=== PATIENT | male | born 1965 | race Caucasian/White ===

== ENCOUNTER 2018-06-05 00:48 | Emergency (ER) | payer MEDICAID ==
[~2018-06-05] VITALS: Ht 175.3 cm; Wt 79.4 kg
--- NOTE | 2018-06-05 00:48 | NUR ---
PT BIBA BLS. TAKEN TO BED 9
--- NOTE | 2018-06-05 00:50 | NUR ---
ASSUMED CARE OF PT AT THIS TIME. PT BIBA AFTER BEING PT FOUND DOWN IN THE STREET. C/O LEFT SIDED CP X 1 HOUR. NO SOB. PT ADMITS TO ETOH TODAY. PATIENT STATES PAIN OF 0/10 AT THIS TIME; VSS; PATIENT POSITIONED FOR COMFORT; HOB ELEVATED; BEDRAILS UP X2; BED DOWN. ER MD MADE AWARE OF PT STATUS.
[2018-06-05 00:57] VITALS: BP 134/78
[2018-06-05] MEDS ORDERED: METF500T PO (01:00)
--- NOTE | 2018-06-05 01:02 | NUR ---
Dr. Polo evaluating patient at bedside.
[2018-06-05 01:24] LABS: BASOPHILS # (AUTO) 0.1 K/uL (0.00-0.22); BASOPHILS % (AUTO) 1.1 % (0.0-2.0); EOSINOPHILS # (AUTO) 0.1 K/uL (0-0.4); HEMATOCRIT 46.1 % (36-52); HEMOGLOBIN 15.4 g/dL (12.0-18.0); LYMPHOCYTES # (AUTO) 2.6 K/uL (2.0-11.5); MEAN CORPUSCULAR HEMOGLOBIN 32 pg (27-31); MEAN CORPUSCULAR HGB CONC 33 g/dL (33-37); MEAN CORPUSCULAR VOLUME 95.1 fL (80-94); MONOCYTES # (AUTO) 0.5 K/uL (0.8-1.0); NEUTROPHILS # (AUTO) 3.9 K/uL (1.8-7.7); NEUTROPHILS % (AUTO) 53.9 % (42.2-75.2); PLATELET COUNT (AUTO) 141 K/uL (140-450); RED BLOOD CELL COUNT(AUTO) 4.85 MIL/uL (4.20-6.10); RED CELL DISTRIBUTION WIDTH 14.8 % (11.6-13.7); WHITE BLOOD COUNT (AUTO) 7.2 K/uL (4.8-10.8)
[2018-06-05] MEDS: NACL 0.9% 1,000 ML IV ONE (01:24)
[2018-06-05] MEDS: ASPIRIN 325 MG TAB PO ONE (01:24)
--- NOTE | 2018-06-05 01:30 | NUR ---
X-Ray at bedside.
[2018-06-05 01:43] LABS: ANION GAP 8.1 (8-16); CARBON DIOXIDE 30.6 mmol/L (21-32); CREATININE 0.9 mg/dL (0.7-1.3); POTASSIUM 3.7 mmol/L (3.5-5.1)
[2018-06-05 01:49] LABS: CREATINE KINASE MB 2.3 ng/mL (0-3.6)
[2018-06-05 01:51] LABS: ALBUMIN 3.6 g/dL (3.4-5.0); TOTAL BILIRUBIN 1.1 mg/dL (0.0-1.0)
--- NOTE | 2018-06-05 05:20 | NUR ---
PATIENT AMBULATED WITHOUT ASSISTANCE TO THE ER BATHROOM
[2018-06-05 05:30] VITALS: BP 134/84
--- NOTE | 2018-06-05 05:30 | NUR ---
Patient discharged with v/s stable. Written and verbal after care instructions given and explained. Patient verbalized understanding. Ambulatory with steady gait. All questions addressed prior to discharge. Advised to follow up with PMD.
== END 2018-06-05 05:30 | disposition home or self-care (01) ==
LOC: MED 00:48
DX: F10.129 Alcohol abuse with intoxication, unspecified (principal); R07.89 Other chest pain; F17.210 Nicotine dependence, cigarettes, uncomplicated; Z79.84 Long term (current) use of oral hypoglycemic drugs
CPT/HCPCS: 36415; 71045; 80053; 82550; 82553; 83690; 84484; 85025; 93005; 99284; J7030; Q0092